=== PATIENT | female | born 1980 | race African-American/Black ===

== ENCOUNTER 2020-01-28 08:29 | Day surgery (SDC) | payer OTHER ==
[2020-01-28 08:41] LABS: Specific Gravity 1.015 (1.005-1.030)
[2020-01-28 09:02] LABS: Urine Appearance CLOUDY; Urine Bilirubin NEGATIVE (NEG); Urine Blood 3+ (NEG); Urine Color YELLOW; Urine Glucose NEGATIVE (NEG); Urine Protein 1+ (NEG); Urine Specific Gravity 1.015 (1.005-1.030); Urine Urobilinogen 0.2 mg/dL (0.2-1.0)
[2020-01-28 09:03] LABS: Urine Microscopic Reflex ORDER UMIC
[2020-01-28 09:14] LABS: Urine Bacteria >50 /HPF (<20); Urine Culture Reflex Order REFLEXED
[2020-01-28] MEDS ORDERED: EPINEPHRINE/PF 1 MG/ML AMP ONE (09:15)
[2020-01-28] MEDS ORDERED: NS 0.9% VIAL 40 ML ONE (09:15)
[2020-01-28] MEDS ORDERED: CEFAZOLIN SODIUM 1 GM/VIAL ONE (09:15)
[2020-01-28] MEDS ORDERED: LIDOCAINE 1% W/EPI 1:100,000 MDV 20 ML VIAL ONE (09:16)
[2020-01-28] MEDS ORDERED: GENTAMICIN SULF 80 MG/2ML INJ ONE (09:16)
[2020-01-28] MEDS ORDERED: BACITRACIN 50000 UNIT VIAL ONE (09:16)
[2020-01-28] MEDS ORDERED: NA CHLORIDE 0.9% 2,000 ML ONE (09:16)
[2020-01-28] MEDS ORDERED: Mastisol Adhesive Liq ONE ×2 (09:16→15:53)
[2020-01-28] MEDS ORDERED: Ringers Lactate 1,000 ML IV ONE ×4 (09:17→14:40)
[2020-01-28] MEDS ORDERED: CEFAZOLIN/SWI 1gm 1 GM/10 ML SYR ONE ×2 (09:26→18:32)
[2020-01-28] MEDS ORDERED: SCOPOLAMINE HYDROBROMIDE PATCH TD ONE (09:58)
[2020-01-28] MEDS ORDERED: propofoL 200 MG/20 ML VIAL IV ONE (10:03)
[2020-01-28] MEDS ORDERED: MIDAZOLAM HCL 2 MG/2 ML INJ ONE (10:05)
[2020-01-28] MEDS ORDERED: FENTANYL CITR 250 MCG/5 ML ONE (10:05)
[2020-01-28] MEDS ORDERED: GLYCOPYRROLATE 0.2 MG/ML SYR ONE ×2 (10:05)
[2020-01-28] MEDS ORDERED: ROCURONIUM 50 MG/5 ML VIAL IV ONE ×2 (10:06→12:43)
[2020-01-28] MEDS ORDERED: LIDOCAINE 2% MPF 5 ML VIAL ONE (10:06)
[2020-01-28] MEDS ORDERED: ONDANSETRON 4 MG/2 ML VIAL ONE ×2 (10:06→15:36)
[2020-01-28] MEDS ORDERED: NITROFURAN MACRO 100 MG CAP PO ONE (10:45)
[2020-01-28] MEDS ORDERED: dexAMETHasone 10 MG/ML VIAL ONE (10:56)
[2020-01-28] MEDS ORDERED: GENTAMICIN 100 MG/100 ML BAG 100 ML IV ONE (10:57)
[2020-01-28] MEDS ORDERED: KETOROLAC 30 MG/ML INJ ONE ×2 (11:56→15:48)
[2020-01-28] MEDS ORDERED: FENTANYL CITR 100 MCG/2 ML ONE ×3 (11:57→15:35)
[2020-01-28] MEDS ORDERED: Phenylephrine HCl 10 MG/ML 1 ML VIAL ONE (12:09)
[2020-01-28] MEDS ORDERED: MORPHINE 10 MG/ML VIAL ONE (12:42)
[2020-01-28 16:10] VITALS: O2SAT 100
[2020-01-28] MEDS ORDERED: HYDROMORPHONE HCL 1 MG/ML INJ IV ONE ×4 (16:28→16:37)
[2020-01-28] MEDS ORDERED: HYDROMORPHONE HCL 1 MG/ML INJ ONE (16:30)
[2020-01-28] MEDS ORDERED: HYDROCODONE/APAP 7.5/325 MG TAB ONE (17:31)
--- NOTE | 2020-01-28 19:29 | OP ---
Surgeon: Wilmer Burnett MD Manager Internal: Shant. Preoperative Diagnoses: Breast descent and enlargement in left distant arms. Postoperative Diagnosis: Breast descent and enlargement in left distant arms. Procedure: Breast lift and reduction in the left distant arms. Anesthesia: General. Procedure In Detail: After satisfactory induction of general anesthesia, the chest was prepped with DuraPrep, dry sterile drapes applied in the usual manner. A 25 mm template was used to outline the r ight and left areolas. Incision was made with scalpel. Intervening skin was de-epithelialized with dermabrader or EpiCut. Then, a transverse incision was made, flap was thinned to approximately 1.5 c m, elevated towards the sternum, clavicle, anterior axillary line. This was done both sides. After this was done, the inferior incision was made and then excess breast tissue laterally and superiorly was excised with a scalpel. Conization was performed with 2-0 PDS suture and straps were elevated at 12 o'clock, 1:30, and 3 o'clock position in the right breast and mirror-image on the left. The stra ps were woven in and out intact the pectoralis major muscle back to the base of the cone, tied themse lves with 2-0 PDS suture for the 12 o'clock and 1:30 strap, 3 o'clock strap was sewn over the sternum at 3 o'clock position with 2-0 Mersilene. Then, this was temporary agnieszka shut, sat up. The dog-e ars laterally and medially marked on. The patient returned supine, excess tissue cut off, and then t he wound irrigated with antibiotic solution twice for hemostasis. A 10 JULIENNE was brought out of the axi lla and then the wound was closed with 3-0 Vicryl subcutaneous tissue, then 3-0 PDS running subcuticu lar tied in the vertical meridian breast. Tincture of benzoin, Steri-Strips were applied. After the left complex was delivered and sewn in place with interrupted 4-0 PDS running subcuticular. The salty ssing was used to tunnel the arms and all instruments were changed. Arms were prepped with DuraPrep, dry sterile drapes applied in usual manner. A scalpel was used to make incision near the medial epi condyle and 1 over the wound flexor surface. A 15 blade was used. Then, a 2.5 cannula was introduce d and 4 incisions were infused into each arm. Then, the each arm was aspirated with a 4 mm cannula, 400 on the right, 350 on the left. The anterior wounds were closed 4-0 PDS, tincture of benzoin, Fabian ri-Strips. The skin was left open on the arms. 4x4s, fluffs, and Aakash wrap was applied to the breast . The patient tolerated the procedure well and returned to Recovery. SADIQ/CAPRICE Voice ID: [id number] Report ID: [id number]
[2020-01-28 19:38] VITALS: BP 106/61; TEMP 97.8
--- OUTSIDE RECORDS SUMMARY | 2020-01-28 19:48 | XMS REPORT | Clinical Summary ---
:1980 Author Organization [facility] Address [address] [place] [address] Care Team Providers Name Role Phone Jerald Primary Care Provider Allergies No Known Allergies Medications Medication Sig Dispensed Refills Start Date End Date Status loratadine (CLARITIN) Take 10 mg by 0 Active 10 mg tablet mouth daily. Active Problems Not on file Family History Medical History Relation Name Comments Hypertension Maternal Grandmother Heart disease Paternal Grandmother Relation Name Status Comments Maternal Grandmother Paternal Grandmother Social History Tobacco Use Types Packs/Day Years Used Date Never Smoker Alcohol Use Drinks/Week oz/Week Comments Yes occasionally Sex Assigned at Date Recorded Not on file Job Start Date Occupation Industry Not on file Not on file Not on file Travel History Travel Start Travel End No recent travel history available. Last Filed Vital Signs Not on file Plan of Treatment Not on file Results Not on fileafter 01/27/2019 Insurance Payer Benefit Plan / Subscriber ID Type Phone Address Group [employer]UE [employer]OSS/[employer]UE [employer]BS PPO POS EPO xxxxxxxxxxxx PPO [phone] [address] [place] [address]
== END 2020-01-28 19:00 | disposition home or self-care (01) ==
LOC: OR 08:29
PROVIDERS: ATTEND Specialist
PROC: 0J0D3ZZ Alteration of Right Upper Arm Subcutaneous Tissue and Fascia, Percutaneous Approach (ICD-10-PCS; 2020-01-28)
PROC: 0H0V0ZZ Alteration of Bilateral Breast, Open Approach (ICD-10-PCS; principal; 2020-01-28 10:00)
PROC: 0J0F3ZZ Alteration of Left Upper Arm Subcutaneous Tissue and Fascia, Percutaneous Approach (ICD-10-PCS; 2020-01-28 10:00)
DX: N64.81 Ptosis of breast (principal); E65 Localized adiposity
CPT/HCPCS: 87088; 87086; 81025; 88305; 87077; 87186; 19316; 15878; J2704; J0171; J2370; J1580 ×2; J2250; J3010 ×4; J1100; J1170 ×3; J0690 ×3; J7120 ×4; J7030; J2405 ×2; 81003; 81015